=== PATIENT | male | born 1970 | race Caucasian/White ===

== ENCOUNTER 2017-01-04 03:14 | Emergency (ER) | payer OTHER ==
[~2017-01-04] VITALS: Ht 172.7 cm; Wt 109.0 kg
[2017-01-04] VITALS (9 sets, daily range): BP systolic 99–149; BP diastolic 65–100; PULSE 90–145; RESP 16–18; TEMP 98.4; O2SAT 94–99
[~2017-01-04 03:14] MED LIST: ASPI325T PO; DILTCD240 PO; METO100 PO; THIA100T PO
[2017-01-04] MEDS ORDERED: DILTIAZEM HCL 25 MG/5 ML VIAL ONE (03:24)
[2017-01-04] MEDS ORDERED: DILTIAZEM HCL 25 MG/5 ML VIAL IV ONE (03:30)
[2017-01-04] MEDS ORDERED: SODIUM CHLORIDE 0.9% FLUSH 10 ML FLUSH IVF PRN (03:30)
[2017-01-04 03:43] LABS: AUTOMATED NEUTROPHIL # 4.1 TH/MM3 (1.8-7.7); BASOPHIL # 0.1 TH/MM3 (0-0.2); BASOPHIL % 1.1 % (0.0-2.0); EOSINOPHIL # 0.2 TH/MM3 (0-0.4); EOSINOPHIL % 2.6 % (0.0-4.0); HEMATOCRIT 46.6 % (39.0-51.0); HEMO FLAGS DIFF FINAL; LYMPH % 28.1 % (9.0-44.0); MEAN CELL VOLUME 100.3 FL (80.0-100.0); MEAN CORPUSCULAR HEMOGLOBIN 35.3 PG (27.0-34.0); MEAN CORPUSCULAR HGB CONC 35.1 % (32.0-36.0); MONO % 9.5 % (0.0-8.0); NEUT % 58.7 % (16.0-70.0); PLATELET COUNT 202 TH/MM3 (150-450); RED BLOOD COUNT 4.65 MIL/MM3 (4.50-5.90); WHITE BLOOD COUNT 7.1 TH/MM3 (4.0-11.0)
[2017-01-04] MEDS ORDERED: CART120C PO (03:47)
[2017-01-04] MEDS ORDERED: ASPI-183 PO (03:47)
[2017-01-04] MEDS ORDERED: METO100T PO (03:47)
--- NOTE | 2017-01-04 03:50 | RADRPT ---
EXAM DATE/TIME: 01/04/2017 03:32 [place] COMPARISON: CHEST SINGLE AP, February 05, 2015, 7:03. INDICATIONS : Chest pain. MEDICAL HISTORY : Hypertension. AFIB SURGICAL HISTORY : None. ENCOUNTER: Initial ACUITY: 1 day PAIN SCORE: 5/10 LOCATION: Bilateral chest FINDINGS: Single AP view of the chest. The lungs are clear. Mild cardiac silhouette enlargement unchanged. No e vidence of pleural effusion or pneumothorax. CONCLUSION: Mild chronic cardiac silhouette enlargement. No acute cardiopulmonary disease iden tified. Tony Shoemaker MD on January 04, 2017 at 3:48 Board Certified Radiologist. This report was verified electronically.
[2017-01-04 03:53] LABS: CHLORIDE 107 MEQ/L (98-107); POTASSIUM 3.4 MEQ/L (3.5-5.1); SODIUM (NA) 141 MEQ/L (136-145)
[2017-01-04 03:57] LABS: ANION GAP 10 MEQ/L (5-15); BICARBONATE 24.3 MEQ/L (21.0-32.0); BLOOD UREA NITROGEN 9 MG/DL (7-18); MAGNESIUM 1.9 MG/DL (1.5-2.5)
[2017-01-04 03:58] LABS: APTT (PATIENT) 27.9 SEC (24.3-30.1); INTERNATIONAL NORMALIZED RATIO 0.9 RATIO
[2017-01-04 04:00] LABS: GLOMERULAR FILTRATION RATE 121 ML/MIN (>89)
[2017-01-04] MEDS ORDERED: SODIUM CHLOR 0.9% 1000 ML INJ 1,000 ML IV SCH (04:00)
[2017-01-04] MEDS ORDERED: SODIUM CHLORID 0.9% 500 ML INJ 500 ML IV ONE (04:00)
[2017-01-04] MEDS ORDERED: DILTIAZEM INJ 125 MG in SODIUM CHLORIDE 0.9% INJ 100 ML IV PRN (04:00)
[2017-01-04 04:03] LABS: CREATINE KINASE 121 U/L (39-308)
[2017-01-04 04:15] LABS: CKMB 1.2 NG/ML (0.5-3.6)
--- NOTE | 2017-01-04 04:41 | PD ---
HPI Chief Complaint: Cardiac Complaint Time Seen by Provider: 03:25 Travel History International Travel<30 days: No Contact w/Intl Traveler<30days: No Traveled to known affect area: No History of Present Illness HPI 46-year-old male presents to the emergency department by private transportation for complaint of atrial fibrillation with rapid ventricular response. Patient has history of atrial fibrillation and is prescribed Toprol on [place]. Patient states prior to arrival to the emergency department he did take a dose of metoprolol and cardiac. Patient admits to eating poorly today and drinking alcohol as he states he was playing poker with his friends. Patient states that he felt himself go into atrial fibrillation. Patient is followed by acute care physical therapist Dr. Berry and has appointment with him next week. Patient denies any near-syncope or syncope but has noted some mild chest tightness and some shortness of breath. No referred neck jaw back shoulder arm pain no report of nausea or vomiting or diaphoresis. Patient denies any tobacco use or substance use admits to occasional alcohol use. Patient denies any known thyroid dysfunction. Patient rates his discomfort 5/10 in intensity. [facility] Past Medical History Narrative Medical Hypertension atrial fibrillation arthritis musculoskeletal pain, skin lesions no tobacco use nursing notes reviewed Hx Anticoagulant Therapy: Yes (DAILY ADULT ASPIRIN) Arthritis: Yes ("LOWER BACK") Atrial Fibrillation: Yes Autoimmune Disease: No Anxiety: Yes Depression: Yes Cancer: No Cardiovascular Problems: Yes Endocrine: No Genitourinary: No Herniated Disk: Yes ("BULGING DISCS") Hypertension: Yes Immune Disorder: No Musculoskeletal: Yes (SPINAL STENOSIS) Neurologic: No Psychiatric: No Reproductive: No Respiratory: No Migraines: Yes Pneumonia: Yes (AGE 17) Tetanus Vaccination: Unknown Influenza Vaccination: No Past Surgical History Abdominal Surgery: Yes ("INGUINAL SURGERY A CHILD") Genitourinary Surgery: Yes ("TESTICULAR SURGERY A CHILD") Social History Alcohol Use: Yes (2-3 CASES OF BEER PER WEEK ) Tobacco Use: No (QUIT 2003) Substance Use: No Allergies-Medications (Allergen,Severity, Reaction): Coded Allergies: Sulfa (Sulfonamide Antibiotics) (Unverified Allergy, Unknown, 01/04/17) Reported Meds & Prescriptions Reported Meds & Active Scripts Active Reported Aspirin 325 Mg Tab 325 Mg PO DAILY Metoprolol Tartrate 100 Mg Tab 100 Mg PO BID Cartia Xt (Diltiazem ER 24 HR) 120 Mg Caper 240 Mg PO DAILY Review of Systems Except as stated in HPI: all other systems reviewed are Neg Physical Exam Narrative GENERAL: Well-developed well-nourished male in no acute distress no respiratory distress SKIN: Warm and dry. HEAD: Normocephalic. EYES: No scleral icterus. No injection or drainage. NECK: Supple, trachea midline. No JVD or lymphadenopathy. CARDIOVASCULAR: Increased irregular irregular rate and rhythm without murmurs, gallops, or rubs. RESPIRATORY: Breath sounds equal bilaterally. No accessory muscle use. GASTROINTESTINAL: Abdomen soft, non-tender, nondistended. MUSCULOSKELETAL: No cyanosis, or edema. BACK: Nontender without obvious deformity. No CVA tenderness. Data Data Last Documented VS Vital Signs Date Time Temp Pulse Resp B/P (MAP) Pulse Ox O2 Delivery O2 Flow Rate FiO2 01/04/17 04:25 103 18 121/70 (87) 98 Nasal Cannula 2.00 01/04/17 03:15 98.4 Orders Orders Diltiazem Inj (Cardizem Inj) (01/04/17 03:24) Electrocardiogram (01/04/17 03:25) Basic Metabolic Panel (Bmp) (01/04/17 03:25) B-Type Natriuretic Peptide (01/04/17 03:25) Ckmb (Isoenzyme) Profile (01/04/17 03:25) Complete Blood Count With Diff (01/04/17 03:25) Magnesium (Mg) (01/04/17 03:25) Prothrombin Time / Inr (Pt) (01/04/17 03:25) Act Partial Throm Time (Ptt) (01/04/17 03:25) Troponin I (01/04/17 03:25) Chest, Single Ap (01/04/17 03:25) Ecg Monitoring (01/04/17 03:25) Bilateral Bp Monitoring (01/04/17 03:25) Iv Access Insert/Monitor (01/04/17 03:25) Oximetry (01/04/17 03:25) Oxygen Administration (01/04/17 03:25) Sodium Chloride 0.9% Flush (Ns Flush) (01/04/17 03:30) Diltiazem Inj (Cardizem Inj) (01/04/17 03:30) Thyroid Stimulating Hormone (01/04/17 03:25) Alcohol (Ethanol) (01/04/17 03:26) Sodium Chlorid 0.9% 500 Ml Inj (Ns 500 M (01/04/17 04:00) Sodium Chlor 0.9% 1000 Ml Inj (Ns 1000 M (01/04/17 04:00) Diltiazem Inj (Cardizem Inj) (01/04/17 04:00) CKMB (01/04/17 03:28) CKMB% (01/04/17 03:28) Labs Laboratory Tests Test 01/04/17 03:28 White Blood Count 7.1 TH/MM3 Red Blood Count 4.65 MIL/MM3 Hemoglobin 16.4 GM/DL Hematocrit 46.6 % Mean Corpuscular Volume 100.3 FL Mean Corpuscular Hemoglobin 35.3 PG Mean Corpuscular Hemoglobin Concent 35.1 % Red Cell Distribution Width 12.0 % Platelet Count 202 TH/MM3 Mean Platelet Volume 8.5 FL Neutrophils (%) (Auto) 58.7 % Lymphocytes (%) (Auto) 28.1 % Monocytes (%) (Auto) 9.5 % Eosinophils (%) (Auto) 2.6 % Basophils (%) (Auto) 1.1 % Neutrophils # (Auto) 4.1 TH/MM3 Lymphocytes # (Auto) 2.0 TH/MM3 Monocytes # (Auto) 0.7 TH/MM3 Eosinophils # (Auto) 0.2 TH/MM3 Basophils # (Auto) 0.1 TH/MM3 CBC Comment DIFF FINAL Differential Comment Prothrombin Time 10.0 SEC Prothromb Time International Ratio 0.9 RATIO Activated Partial Thromboplast Time 27.9 SEC Blood Urea Nitrogen 9 MG/DL Creatinine 0.71 MG/DL Random Glucose 124 MG/DL Calcium Level 8.6 MG/DL Magnesium Level 1.9 MG/DL Sodium Level 141 MEQ/L Potassium Level 3.4 MEQ/L Chloride Level 107 MEQ/L Carbon Dioxide Level 24.3 MEQ/L Anion Gap 10 MEQ/L Estimat Glomerular Filtration Rate 121 ML/MIN Total Creatine Kinase 121 U/L Creatine Kinase MB 1.2 NG/ML Troponin I LESS THAN 0.02 NG/ML B-Type Natriuretic Peptide 29 PG/ML Thyroid Stimulating Hormone 3rd Gen 3.350 uIU/ML Ethyl Alcohol Level 54 MG/DL MDM Medical Decision Making Medical Screen Exam Complete: Yes Emergency Medical Condition: Yes Medical Record Reviewed: Yes Differential Diagnosis Atrial fibrillation with response holiday heart electrolyte disturbance ACS [place] CHF PE Narrative Course Well-developed well-nourished male in no acute distress no respiratory distress placed on cafeteria monitor found to be in atrial fibrillation with rapid ventricular rate IV access obtained patient will Was attempted without success maintenance IV fluids administered and patient administered Cardizem 20 mg IV patient had a drop in his blood pressure to 99 mmHg and rate slowly decreased given a bolus of normal saline Patient resting comfortably pressure has returned to acceptable normal range and patient started on Cardizem infusion as rapid ventricular rate persists Chest x-ray no lobar infiltrate no failure Alcohol is 54 mildly elevated; cardiac enzymes are normal range; electrolytes and basic metabolic panel values are normal range except for mild hypokalemia 3.4 patient given oral replacement Patient started on Cardizem infusion Leona Ortiz MD Jan 04, 2017 04:41
[2017-01-04] MEDS ORDERED: POTASSIUM CHLORIDE 20 MEQ CONTROLLED RELEASE TAB PO ONE (04:45)
[2017-01-04] MEDS ORDERED: KETOROLAC TROMETHAMINE 30 MG/ML (IVP) VIAL IV PUSH ONE (05:00)
--- NOTE | 2017-01-04 12:39 | EKG ---
Date Performed: 01/04/2017 Time Performed: 06:09:50 PTAGE: 46 years EKG: ATRIAL FIBRILLATION NONSPECIFIC T-WAVE ABNORMALITY ABNORMAL RHYTHM ECG INTERPRETATION BASED ON A DEFAULT AGE OF 42 YEARS PREVIOUS TRACING 01/04/17 Compared to prior tracing no significant change DOCTOR: Seth Bustillo Interpretating Date/Time 01/04/2017 12:35:12
--- NOTE | 2017-01-04 12:39 | EKG ---
Date Performed: 01/04/2017 Time Performed: 03:20:31 PTAGE: 46 years EKG: ATRIAL FIBRILLATION WITH RAPID VENTRICULAR RESPONSE NONSPECIFIC ST & T-WAVE ABNORMALITY ABN ORMAL RHYTHM ECG PREVIOUS TRACING 02/05/15 Compared to prior tracing no significant change DOCTOR: Seth Bustillo Interpretating Date/Time 01/04/2017 12:34:56
== END 2017-01-04 07:02 | disposition left against medical advice (07) ==
LOC: PHED 03:14
DX: I48.91 Unspecified atrial fibrillation (principal); R07.89 Other chest pain; R06.02 Shortness of breath; R94.31 Abnormal electrocardiogram [ECG] [EKG]; I10 Essential (primary) hypertension; Z72.89 Other problems related to lifestyle; Z53.29 Procedure and treatment not carried out because of patient's decision for other reasons; Z79.82 Long term (current) use of aspirin; Z79.899 Other long term (current) drug therapy; Z86.79 Personal history of other diseases of the circulatory system; Z87.39 Personal history of other diseases of the musculoskeletal system and connective tissue; Z86.59 Personal history of other mental and behavioral disorders; Z86.69 Personal history of other diseases of the nervous system and sense organs
CPT/HCPCS: 71010; 80048; 80307; 82550; 82552; 83735; 83880; 84443; 84484; 85025; 85610; 85730; 93005; 96365; 96366; 96375; 99285; J1885; J7030; J7040